=== PATIENT | male | born 1950 | race Caucasian/White ===

== ENCOUNTER 2018-08-20 16:47 | Emergency (ER) | payer MEDICARE, SELFPAY ==
[2018-08-20] VITALS (23 sets, daily range): BP systolic 130–176; BP diastolic 79–104; PULSE 61–93; RESP 11–20; TEMP 36.5–37.1; O2SAT 92–97
--- NOTE | 2018-08-20 17:04 | DI.CT_ITS ---
SYMPTOM/DIAGNOSIS: GI BLEEDING ABDOMINAL AND PELVIC CT: 08/20/18 CT examination of the abdomen and pelvis was performed with a bolus infusion of 100 cc Omnipaque 350. Images obtained through the lung bases are unremarkable. Liver, spleen and pancreas appear intact. There is question of renal cortical mass involving the mid to lower pole of the left kidney laterally. This is a questionable finding. Otherwise, kidneys and adrenals are unremarkable. Abdominal aorta is of normal diameter although with a calcified wall. No other major vascular abnormalities seen. Appendix is normal. No evidence of diverticulitis or bowel obstruction. No abdominal or pelvic adenopathy seen. No significant abdominal wall hernia seen. CONCLUSION: No evidence of acute process. Question left renal cortical mass, renal MRI requested for further evaluation.
[2018-08-20 17:40] LABS: Abs Immature Grans 0.01 k/cumm (0.0-0.09); Absolute Basophil Count 0.02 k/cumm (0.0-0.2); Absolute Eosinophil Count 0.07 k/cumm (0.0-0.7); Absolute Lymphocyte Count 1.38 k/cumm (1.2-3.4); Absolute Monocyte Count 0.41 k/cumm (0.11-0.7); Absolute Neutrophil Count 3.77 k/cumm (1.2-6.7); Basophils % 0.4; Eosinophils % 1.2; HCT 44.8 % (40.0-50.0); HGB 15.8 g/dL (13.5-17.5); Immature Grans % 0.2; Lymphocytes % 24.4; Mean Corp. HGB Concentration 35.3 g/dL (32.0-36.0); Mean Corpuscular Hemoglobin 32.6 pg (27.0-33.0); Mean Corpuscular Volume 92.4 fL (80-95); Monocytes % 7.2; Neutrophils % 66.6; Platelet Count 187 x1000/uL (130-400); RBC 4.85 m/cumm (4.50-6.00); RBC Distribution Width 12.7 % (11.8-14.1); White Blood Cell Count 5.66 k/cumm (4.4-10.8)
[2018-08-20 17:53] LABS: ALT 34 U/L (12-78); AST 8 U/L (15-37); Albumin 3.6 g/dL (3.4-5.0); Alkaline Phosphatase 86 U/L (46-116); Anion Gap 10.9 mmol/L (3-11); BUN 15 mg/dL (7-18); Bilirubin, Total 0.4 mg/dL (0.2-1.0); CO2 26.1 mmol/L (21.0-32.0); CREATININE 1.05 mg/dL (0.70-1.30); Calcium 8.7 mg/dL (8.5-10.1); Chloride 102 mmol/L (98-107); Glucose 132 mg/dL (70-100); PTT Activated 23.4 sec (21.0-31.4); Potassium 3.7 mmol/L (3.5-5.1); Prothrombin Time 9.8 sec (9.3-11.0); Sodium 139 mmol/L (136-145); Total Protein 7.2 g/dL (6.4-8.2)
[2018-08-20] MEDS: Omnipaque 350 MG/ML 100 ML BTL IJ (18:08)
--- NOTE | 2018-08-20 18:51 | DI.VRAD_ITS ---
EXAM: CT Abdomen and Pelvis With Contrast EXAM DATE/TIME: 08/20/2018 5:05 PM CLINICAL HISTORY: 68 years old, male; Signs and symptoms; Other: Gi bleed; Patient HX: Rectal bleeding since this morning. TECHNIQUE: Imaging protocol: Axial computed tomography images of the abdomen and pelvis with intravenous contrast. Coronal and sagittal reformatted images were created and reviewed. Radiation optimization: All CT scans at this facility use at least one of these dose optimization techniques: automated exposure control; mA and/or kV adjustment per patient size (includes targeted exams where dose is matched to clinical indication); or iterative reconstruction. Contrast material: omnipaque 350 Contrast volume: 100 ml Contrast route: iv COMPARISON: No relevant prior studies available. FINDINGS: Lower thorax: There is mild atelectasis and/or scarring at the lung bases. There is moderately severe diffuse atherosclerosis of the abdominal aorta without evidence of aneurysm. There are few diverticula in the distal descending colon and sigmoid colon. There is no identifiable surrounding inflammation however. ABDOMEN: Liver: Normal. No mass. Gallbladder and bile ducts: Normal. No calcified stones. No ductal dilation. Pancreas: Normal. No ductal dilation. Spleen: Normal. No splenomegaly. Adrenals: Normal. No mass. Kidneys and ureters: Normal. No hydronephrosis. Stomach and bowel: See Lower Thorax Finding. Appendix: No evidence of appendicitis. PELVIS: Bladder: Unremarkable as visualized. Reproductive: Unremarkable as visualized. ABDOMEN and PELVIS: Intraperitoneal space: Normal. No free air. No significant fluid collection. Bones/joints: There is mild severe discogenic disease at L4-5 with moderate spondylosis elsewhere including lower thoracic spine Soft tissues: Unremarkable. Vasculature: See Lower Thorax Finding. Lymph nodes: Normal. No enlarged lymph nodes. IMPRESSION: #1 mild diverticulosis of the left colon but no definite evidence of acute diverticulitis #2 moderate diffuse atherosclerosis Dictated and Authenticated by: Wm Garcia MD. Ordering:TERRELL Oleary MD
--- NOTE | 2018-08-20 19:06 | W.ED.GENAD ---
Discharge Plan Disposition Patient Disposition: HOME Condition: Good Discharge Details Chief Complaint: GI Bleed Clinical Impression: Rectal bleed Primary Care Provider: Leon Deluca ED Provider: Anirudh Weaver Home Meds and New Rx's Prescriptions: New hydrocortisone acetate [Anusol-HC] 25 mg suppository 25 mg AL BID 7 Days Qty: 24 RF: 0 Discharge Instructions Instructions: Rectal Bleeding (ED) Additional Instructions: Please use the suppository if you develop any pain with bowel movements. Please maintain soft stools by taking your home Colace regularly. You will be contacted for your colonoscopy and surgery appointment. If you notice any worsening of your symptoms, or any new symptoms such as severe rectal bleeding, vomiting, diarrhea, fever, chills, shortness of breath, chest pain, numbness, weakness, or fainting , please return immediately to the emergency department for reevaluation. Please follow up with your primary care provider as soon as possible for reassessment and reevaluation. As always, it was a pleasure participating in your medical care today. Referrals: Leon Deluca [Primary Care Provider] - Discharge Data Discharge Date/Time-TO BE ENTERED AT DEPARTURE: 08/20/18 19:22 Medical Decision Making This is a 68-year-old male presents today for evaluation of rectal bleeding. Patient had rectal bleeding that started this morning, and was present for an additional bowel movement later. He has no associated pain or tenderness on exam. Remainder of his exam demonstrates no signs of fissure or significant hemorrhoid, however he did have a small amount of pain when the bleeding first started with his bowel movement which may have been a ruptured hemorrhoid at that time. Laboratory workup was performed and demonstrates normal hemoglobin, normal renal function, normal platelets, no other significant abnormalities. CT scan shows no acute process but does demonstrate evidence of diverticulosis with no active bleeding. With no continued bloody bowel movements during his stay here, normal vital signs, normal laboratory workup I do feel that he can be discharged with close follow-up with surgery on an outpatient basis and colonoscopy. Discussed the importance of maintaining soft stools, Anusol suppositories for potential hemorrhoids, and prompt return for any worsening of his symptoms. I have extensively reviewed the treatment plan and discharge instructions with the patient and their family. I have addressed all patient concerns at this time. The patient and family was made aware of what symptoms to monitor for that would warrant a return to the emergency department. Discussed the plan with the patient and family, they demonstrate verbal understanding and agreement with our assessment and plan at this time. TECHNIQUE: Imaging protocol: Axial computed tomography images of the abdomen and pelvis with intravenous contrast. Coronal and sagittal reformatted images were created and reviewed. Radiation optimization: All CT scans at this facility use at least one of these dose optimization techniques: automated exposure control; mA and/or kV adjustment per patient size (includes targeted exams where dose is matched to clinical indication); or iterative reconstruction. Contrast material: omnipaque 350 Contrast volume: 100 ml Contrast route: iv COMPARISON: No relevant prior studies available. FINDINGS: Lower thorax: There is mild atelectasis and/or scarring at the lung bases. There is moderately severe diffuse atherosclerosis of the abdominal aorta without evidence of aneurysm. There are few diverticula in the distal descending colon and sigmoid colon. There is no identifiable surrounding inflammation however. ABDOMEN: Liver: Normal. No mass. Gallbladder and bile ducts: Normal. No calcified stones. No ductal dilation. Pancreas: Normal. No ductal dilation. Spleen: Normal. No splenomegaly. Adrenals: Normal. No mass. Kidneys and ureters: Normal. No hydronephrosis. Stomach and bowel: See Lower Thorax Finding. Appendix: No evidence of appendicitis. PELVIS: Bladder: Unremarkable as visualized. Reproductive: Unremarkable as visualized. ABDOMEN and PELVIS: Intraperitoneal space: Normal. No free air. No significant fluid collection. Bones/joints: There is mild severe discogenic disease at L4-5 with moderate spondylosis elsewhere including lower thoracic spine Soft tissues: Unremarkable. Vasculature: See Lower Thorax Finding. Lymph nodes: Normal. No enlarged lymph nodes. IMPRESSION: #1 mild diverticulosis of the left colon but no definite evidence of acute diverticulitis #2 moderate diffuse atherosclerosis Dictated and Authenticated by: Wm Garcia MD. HPI General Date/Time Provider Initiated Documentation: 08/20/18 16:52. HPI Narrative: This is a 68-year-old male with no significant past medical history who presents today for evaluation of bright red blood per rectum. Patient states that this morning he had a bowel movement which caused some pain at that time, he noticed some blood around his stool, and since then he has had 2 more episodes of blood. The first time it was just blood which she would describe is bright red with some clots, small amount in the amount of 1-2 tablespoons. The second episode was with a bowel movement, which had no associated pain. There is also bright red blood noted at this time was roughly 1-2 tablespoons of blood. He denies any vomiting, diarrhea, chest pain, shortness of breath, blood thinner use, numbness tingling or weakness. He denies any previous abdominal surgeries. He has no other complaints or other modifying factors. He has not had any symptoms like this before in the past. He denies any recent colonoscopy. Related Data Home Medications Medication Instructions Recorded Confirmed hydrocortisone acetate [Anusol-HC] 25 mg AL BID 7 Days #24 each 08/20/18 Previous Rx's Medication Instructions Recorded hydrocortisone acetate [Anusol-HC] 25 mg AL BID 7 Days #24 each 08/20/18 Allergies Allergy/AdvReac Type Severity Reaction Status Date / Time No Known Allergies Allergy Unverified 08/20/18 17:12 General Stated Complaint: GI Bleed DARA: 2 Review of Systems Review of Systems All systems reviewed & are unremarkable except as noted in HPI and below PFSH Surgical History Colonoscopy - IV Sedation (12/26/15) Vasectomy Social History Smoking/Tobacco Use Status: Former Tobacco Use Alcohol Intake: never Drug use: Never Substance use type: does not use Do you feel safe at home: Yes Do you feel safe in your relationship?: Yes Exam Narrative Exam Narrative: 1.Const: Well-nourished, Well-developed, appearing stated age 2.Eyes: PERRL, no conjunctival injection, and symmetrical lids. 3.ENT: Atraumatic external nose and ears. Moist MM. Neck: Symmetric, trachea midline, No thyromegaly. 4.CVS: +S1/S2, No murmurs or gallops. Peripheral pulses 2+ and equal in all extremities. Brisk capillary refill in all extremities. 5.RESP: Unlabored respiratory effort. Clear to auscultation bilaterally. No wheezes rales or rhonchi 6.GI: Soft, Nontender/Nondistended, No hepatosplenomegaly. No guarding or rebound. Rectal exam demonstrates no evidence of enlarged clot or hemorrhoid. Internal rectal exam demonstrates no significant tenderness, no evidence of anal fissure. No signs of active bleeding. There is some dried blood noted. No other significant abnormality. 7.MSK: Normocephalic/Atraumatic, Extremities w/o deformity or ttp No cyanosis or clubbing, Normal movement of all extremities 8.Skin: Warm, Dry. No rashes or lesions. 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 Sensation grossly intact, no focal neurologic deficits. 10.Psych: (AAO) x3. Appropriate mood and affect Course Vital Signs Temperature 36.5 C 08/20/18 16:56 Pulse 70 08/20/18 16:56 Respiratory Rate 13 08/20/18 16:56 Blood Pressure 166/98 H 08/20/18 16:56 Pulse Oximetry 95 08/20/18 16:56 Temperature 36.5 C 08/20/18 16:56 Temperature Source Temporal Artery Scan 08/20/18 16:56 Pulse 70 08/20/18 16:56 Respiratory Rate 13 08/20/18 16:56 Respiratory Effort Non-Labored 08/20/18 16:56 Blood Pressure 166/98 H 08/20/18 16:56 Pulse Oximetry 95 08/20/18 16:56 Oxygen Delivery Method Room Air 08/20/18 16:56 Oxygen Flow Rate 0 08/20/18 16:56 Pain Level 0 08/20/18 16:56 Lab/Test Results Lab/Test Results: Laboratory Tests Range/Units 08/20/18 08/20/18 08/20/18 17:25 17:25 17:25 WBC (4.4-10.8) k/cumm 5.66 RBC (4.50-6.00) m/cumm 4.85 Hgb (13.5-17.5) g/dL 15.8 Hct (40.0-50.0) % 44.8 MCV (80-95) fL 92.4 MCH (27.0-33.0) pg 32.6 MCHC (32.0-36.0) g/dL 35.3 RDW (11.8-14.1) % 12.7 Plt Count (130-400) x1000/uL 187 MPV (8.0-11.0) fL 11.0 Immature Gran % 0.2 Neutrophils % 66.6 Lymphocytes % 24.4 Monocytes % 7.2 Eosinophils % 1.2 Basophils % 0.4 Absolute Neutrophils (1.2-6.7) k/cumm 3.77 Absolute Lymphocytes (1.2-3.4) k/cumm 1.38 Absolute Monocytes (0.11-0.7) k/cumm 0.41 Absolute Eosinophils (0.0-0.7) k/cumm 0.07 Absolute Basophils (0.0-0.2) k/cumm 0.02 PT (9.3-11.0) sec 9.8 INR (0.9-1.1) 1.0 APTT (21.0-31.4) sec 23.4 Sodium (136-145) mmol/L 139 Potassium (3.5-5.1) mmol/L 3.7 Chloride (98-107) mmol/L 102 Carbon Dioxide (21.0-32.0) mmol/L 26.1 Anion Gap (3-11) mmol/L 10.9 BUN (7-18) mg/dL 15 Creatinine (0.70-1.30) mg/dL 1.05 Estimated GFR/1.73 m2 (mL/min/1.73m2) >= 60.00 Glucose (70-100) mg/dL 132 H Calcium (8.5-10.1) mg/dL 8.7 Total Bilirubin (0.2-1.0) mg/dL 0.4 AST (15-37) U/L 8 L ALT (12-78) U/L 34 Alkaline Phosphatase (46-116) U/L 86 Total Protein (6.4-8.2) g/dL 7.2 Albumin (3.4-5.0) g/dL 3.6
--- NOTE | 2018-08-21 10:06 | NUR.NOTE ---
Nursing Note: Faxed the referral to General Surgery for follow up. Maryse Linder.
--- NOTE | 2018-08-23 08:05 | W.ED.FU ---
Date of service: 08/23/18 Time of Service: 08:06 Follow Up Plan: I was contacted by Dr. Fournier the radiologist, and on reread of the patient's initial CT scan there is concern for a questionable left renal cortical mass, recommended renal MRI for future evaluation per radiology. I did contact the patient discussed these findings with him over the phone at 8:06 AM. He has follow-up tomorrow with the surgeon. I recommended that he discuss this with them at that time. In regards to the patient's bleeding, the bleeding has resolved, he is passing gas, he has no abdominal pain or distention. He is feeling much better. We discussed red flags for which to immediately return as well as the importance of follow-up tomorrow with his surgeon. All questions were answered. ABDOMINAL AND PELVIC CT: 08/20/18 CT examination of the abdomen and pelvis was performed with a bolus infusion of 100 cc Omnipaque 350. Images obtained through the lung bases are unremarkable. Liver, spleen and pancreas appear intact. There is question of renal cortical mass involving the mid to lower pole of the left kidney laterally. This is a questionable finding. Otherwise, kidneys and adrenals are unremarkable. Abdominal aorta is of normal diameter although with a calcified wall. No other major vascular abnormalities seen. Appendix is normal. No evidence of diverticulitis or bowel obstruction. No abdominal or pelvic adenopathy seen. No significant abdominal wall hernia seen. CONCLUSION: No evidence of acute process. Question left renal cortical mass, renal MRI requested for further evaluation. [id number]: Total DLP = 0.00 mGy-cm
== END 2018-08-20 19:22 | disposition home or self-care (01) ==
PROVIDERS: Emergency Provider Student in an Organized Health Care Education/Training Program; PCP Family Medicine
DX: K62.5 Hemorrhage of anus and rectum (principal)
CPT/HCPCS: 36415; 80053; 86900; 86901; 99285; 74177; 85025; 85610; 85730; 99284; J3490

== ENCOUNTER → 2018-08-24 09:41 | Outpatient (BNVA) | payer MEDICARE, SELFPAY | PROVIDERS: PCP Family Medicine; Referring Provider Family Medicine; Visit Provider Physical Therapy Assistant | DX: Z86.010 Personal history of colon polyps (principal); K62.5 Hemorrhage of anus and rectum; K21.9 Gastro-esophageal reflux disease without esophagitis | CPT/HCPCS: 99212; 99213 ==

== ENCOUNTER 2018-09-01 10:53 | Day surgery (SDC) | payer MEDICARE, SELFPAY ==
[2018-09-01 11:18] VITALS: BP 133/99; PULSE 70; RESP 18; TEMP 35.8; O2SAT 97
[2018-09-01] MEDS: Lactated Ringers 1,000 ML 80 ML IV (11:25)
--- NOTE | 2018-09-01 12:29 | STOM_PTH ---
PATIENT: Lyndon Álvarez LOC: [facility] U#:[id number] AGE/SX: 68/M ROOM: RE09/01/[address]: Anisa Sauceda : 1950 BED: DIS: 09/01/2018 SPEC #: [id number] RECD: 09/01/18 16:33 STATUS: [facility] #: [id number] YURIDIA: 09/01/18 12:[address]: Anisa Sauceda DEPT: Surgical Specimen RECD BY: Gaurav Casarez ENTERED: 09/01/18 16:40 SP TYPE: STOMACH OTHR DR: Leann Aviles Tissues: 1 - STOMACH BIOPSY 2 - STOMACH BIOPSY 3 - STOMACH BIOPSY 4 - STOMACH BIOPSY 5 - STOMACH BIOPSY 6 - STOMACH BIOPSY 7 - STOMACH BIOPSY Procedures: GROSS AND MICRO LEVEL 4 Comments: [id number]
--- NOTE | 2018-09-01 13:00 | W.PM.ENDDOP ---
Date of service: 09/01/18 Time of Service: 13:00 Endoscopy Report DATE OF PROCEDURE: 09/01/18 PRE-OP DIAGNOSIS: GERD/Hx of CRC polypc POST-OP DIAGNOSIS: other (sm hiatal hernia/esophagitis- poss Barett's, pd path. x2 polyps- 80 & 20cm. diverticular Dx mild) PROCEDURE: egd w/ Bx CE w/ polypectomy x2 ANESTHESIA: GETA ESTIMATED BLOOD LOSS: 5 PATHOLOGY: other COMPLICATIONS: None DISPOSITION: same day PREP: Miralax COLONOSCOPY RETRACTION TIME: 12 mins PROCEDURE DESCRIPTION: After informed consent was obtained the patient was take to the procedure room and placed in a supine position. Monitors were applied and a time out was done. The patients name, date of , procedure type, allergies to medications and metal in their body was reviewed. A bite block was placed and the patient was sedated. Once sedated and comfortable the gastroscope was advanced through the oropharynx which was grossly normal into the esophagus. The proximal and mid-esophagus were nl. In the distal esophagus there was mod-severe esohphagitis. Poss Barett's- 1 tongue. pd path. Bx taken Sm hiatal hernia. noted. The scope was advanced into the stomach and through the pylorus into the 3rd portion of the duodenum. The duodenum was noted to be nl. Biopsies were done nl. The scope was retracted back into the stomach and biopsies were done to rule out H. pylori. There were no ulcers. The scope was retroflexed. The cardia and fundus were noted to be normal. There sm a hiatal hernia noted. The scope was retracted back into the esophagus and biopsies were done of the GE junction to rule out Morocho's. The Z line was regular. The GE junction was at 40 cm. After informed consent was obtained the patient was taken to the procedure room and placed in a left decubitous position. Monitors were applied and a time out was done. The patients name, date of , procedure, allergies to medications and metal in their body was reviewed. The patient was then sedated. Once sedated and comfortable a rectal exam was done. External exam was normal. Internal exam revealed a normal sphincter tone and no palpable masses. The prostate - could not palpate. The scope was then introduced and retrofelexed. No internal hemorrhoids were identified. The scope was then advanced to the cecum without difficulty. The TI and appendiceal orifice were identified. The prep was good. The scope was then slowly retracted over 12 minutes back into the rectum. Polyps were removed at 80cm/ascending & 20cm/descending. w/ cold biting forcept. Al specimens are retrieved adn no bleeding is noted. . The scope was removed and the patient was woken up and taken back to Same day surgery in stable condition. The patient tolerated the procedure well and there were no immediate complications. Follow up: The patient should follow up in 3-5yrs path pd or unless they develop changes in bowel habits or other new gastrointestinal complaints.
--- NOTE | 2018-09-01 13:06 | W.PM.DSUDISC ---
Discharge Plan Disposition Patient Disposition: HOME Condition: Good Discharge Details Attending Provider: Anisa Sauceda Primary Care Provider: Leann Aviles Home Meds and New Rx's Prescriptions: New pantoprazole [Protonix] 40 mg tablet,delayed release (DR/EC) 40 mg PO DAILY Qty: 30 RF: 11 Discontinued duralax PO PRNRF: 0 Discharge Instructions Instructions: High Fiber Diet (GEN), Gastroesophageal Reflux Disease (GEN) Additional Instructions: Findings: esophagitis sm hiatal hernia diverticular Dx - mild polyps x2 Follow up: 2wks no ASA/ NSAIDs for x2 wks start protonix Continue with lifestyle modifications: no alcohol, tobacco products, Aspirin or NSAID's (ibuprofen, Motrin, Naprosyn, aleve, etc), soda pop/any carbonated beverages, caffeine (including tea & chocolate), and acidic foods, (tomatoes, citrus, onions, peppermints) spicy or fried/fatty foods. Do not lie down for 30 minutes after eating, and do not eat 2 hours prior to bedtime. Avoid wearing tight fitting clothing/ belts Please call if you develop: fevers >101.5 Nausea or Vomiting Abdominal pain that is not transient DAY SURGERY UNIT POST COLONOSCOPY INSTRUCTIONS 1. Because there will be medication in your system for the next 24 hours, you may feel a little sleepy. Your coordination will be affected. Therefore: a. Do not drive or operate dangerous equipment for 24 hours. b. Do not drink alcohol beverages for 24 hours (not even beer). c. Plan to go home and rest for the day. 2. Generally there are no restrictions on your activity after a day or so has gone by, but you may feel a bit fatigued for a few days. 3 After you arrive home you may have a light meal and return to a normal diet as you can tolerate it without feeling sick to your stomach. 4. After surgery, you may feel pain or discomfort. This should be only transient, but if it persists please contact your doctor. 5. If there are any questions regarding the findings of your procedure, please feel free to contact your doctor. 6. If you are unable to contact your doctor with a problem, contact the hospital at [phone]. 7. Continue all your regular medications unless directed otherwise. I understand the above instructions and have no questions. Signature of Patient or Responsible Adult Escort Date/Time Name of Responsible Adult Escort Signature of Nurse Date/Time Activity:: no heavy lifting or strenuous activity x 24 hrs Diet:: lt sm meals today DS: Diagnosis Discharge Diagnosis (1) GERD (gastroesophageal reflux disease): Status: Acute (2) Tubular adenoma: Status: Acute (3) Esophagitis determined by endoscopy: Status: Acute (4) Hiatal hernia: Status: Chronic (5) Diverticula of colon: Status: Acute
[2018-09-01 13:28] VITALS: BP 143/89; PULSE 60; RESP 18; TEMP 35.3; O2SAT 97
== END 2018-09-01 14:17 | disposition home or self-care (01) ==
PROVIDERS: PCP Nurse Practitioner Family; Visit Provider Surgery
PROC: (CPT 45380; principal; 2018-09-01 13:00)
DX: K62.5 Hemorrhage of anus and rectum (principal); D12.2 Benign neoplasm of ascending colon; D12.6 Benign neoplasm of colon, unspecified; Z86.010 Personal history of colon polyps; K21.0 Gastro-esophageal reflux disease with esophagitis; K31.89 Other diseases of stomach and duodenum; K44.9 Diaphragmatic hernia without obstruction or gangrene
CPT/HCPCS: 45380; 43239; 88305

== ENCOUNTER → 2018-09-11 10:16 | Outpatient (BNVA) | payer MEDICARE, SELFPAY | PROVIDERS: PCP Nurse Practitioner Family; Referring Provider Nurse Practitioner Family; Visit Provider Surgery | DX: K57.30 Diverticulosis of large intestine without perforation or abscess without bleeding (principal); K44.9 Diaphragmatic hernia without obstruction or gangrene; K21.0 Gastro-esophageal reflux disease with esophagitis; D36.9 Benign neoplasm, unspecified site | CPT/HCPCS: 99212 ==

== ENCOUNTER 2018-09-14 01:35 | Outpatient (CLI) | payer MEDICARE, SELFPAY ==
[2018-09-14] MEDS: Gadoterate meglumine 20 ML VIAL IVP (09:30)
[2018-09-14] MEDS: Normal Saline Flush 10 ML SYR IVP (09:31)
--- NOTE | 2018-09-14 09:41 | DI.MRI_ITS ---
SYMPTOMS/DIAGNOSIS: RENAL MASS, N28.89, F/U ABNORMAL FINDINGS ON XR OF OTHER ABDOMINAL REGIONS, R93.5 ABDOMINAL MRI: MRI examination of the abdomen was performed utilizing renal mass protocol. An intermediate attenuation mass was identified on contrast enhanced CT on recent examination of 08/20/18 with attenuation measurements approximately 46 Hounsfield units. On today's MR examination, visualized portions of the liver and spleen are unremarkable. No pancreatic abnormality seen. No aortic aneurysm. Adrenals are unremarkable. No abdominal adenopathy seen. The left renal mass measures about 16 mm in diameter and is well circumscribed and homogeneous in signal on all pulse sequences. The mass does not show enhancement on multiphasic post contrast imaging. The mass is of intermediate signal intensity on T1 weighted images and low signal intensity on T2 and T2 fat-sat imaging. Post phase imaging shows no associated Yue ink artifact to suggest macroscopic fat. The findings as described may represent a proteinaceous or hemorrhagic cyst. Neoplastic disease not absolutely excluded but less likely. I would suggest that an ultrasound also be obtained at this time to provide any more relevant information. The patient has not had a previous ultrasound examination. If the mass is not clearly identified as a cyst at ultrasound, follow-up MRI would be recommended in six months to assess the stability of the lesion.
[2018-09-15] MEDS: Gadoterate meglumine 20 ML VIAL IVP (11:58)
[2018-09-15] MEDS: Normal Saline Flush 10 ML SYR IVP (11:59)
== END 2018-09-14 01:55 ==
PROVIDERS: PCP Nurse Practitioner Family; Visit Provider Nurse Practitioner Family
DX: N28.89 Other specified disorders of kidney and ureter (principal); R93.5 Abnormal findings on diagnostic imaging of other abdominal regions, including retroperitoneum
CPT/HCPCS: 74183

== ENCOUNTER 2018-09-28 01:19 | Outpatient (CLI) | payer MEDICARE, SELFPAY ==
--- NOTE | 2018-09-28 12:00 | DI.US_ITS ---
SYMPTOMS/DIAGNOSIS: RENAL MASS, N28.89, F/U MRI AND CT, ? CYST RENAL ULTRASOUND: The right kidney measures 10.6 x 6.4 x 6.4 cm. The left kidney measures 10.7 x 4.8 x 5.4 cm and contains a small cortical cystic region. Although this finding may in fact represent a simple cyst, further assessment with CT is recommended. The prevoid bladder contains 176 cc, the postvoid bladder 19 cc. There is mild enlargement of the prostate at 32 cc. Both ureteral jets were visualized. SUMMARY: A left renal 1.5 x 1.3 x 1.5 cm cortical abnormality is demonstrated, likely representing a cyst; however, the findings are not entirely typical and further evaluation with renal CT is suggested.
== END 2018-09-28 01:39 ==
PROVIDERS: PCP Nurse Practitioner Family; Visit Provider Nurse Practitioner Family
DX: N28.89 Other specified disorders of kidney and ureter (principal); N28.1 Cyst of kidney, acquired; N40.0 Benign prostatic hyperplasia without lower urinary tract symptoms
CPT/HCPCS: 76770

== ENCOUNTER 2018-10-04 09:20 | Outpatient (REF) | payer MEDICARE, SELFPAY ==
[2018-10-04 12:11] LABS: Anion Gap 10.3 mmol/L (3-11); BUN 14 mg/dL (7-18); CO2 26.7 mmol/L (21.0-32.0); CREATININE 0.93 mg/dL (0.70-1.30); Calcium 8.4 mg/dL (8.5-10.1); Chloride 105 mmol/L (98-107); Glucose 122 mg/dL (70-100); Sodium 142 mmol/L (136-145)
== END 2018-10-04 09:40 ==
LOC: NCHCN 09:20
PROVIDERS: PCP Nurse Practitioner Family; Visit Provider Nurse Practitioner Family
DX: R73.09 Other abnormal glucose (principal)
CPT/HCPCS: 80048

== ENCOUNTER 2019-11-07 02:15 | Outpatient (CLI) | payer MEDICARE, SELFPAY ==
--- NOTE | 2019-11-07 | DI.US_ITS ---
EXAM: US RENAL CLINICAL HISTORY: RENAL MASS, N28.89, HX OF INCIDENTAL FINDING MOST LIKELY CYST. TECHNIQUE: Mai scale, color and spectral Doppler were used. COMPARISON: US US renal from 09/28/2018 FINDINGS: Renal size in cm: Right: 11.3 left: 12.6 Echogenicity: Normal. Hydronephrosis: No. Cyst or mass: There is again seen a hypoechoic avascular left renal cortical lesion. It measures 1.7 x 1.3 x 1.5 cm. Using similar measuring technique on the prior examination, there has been no signi ficant change in size. Nephrolithiasis: No. Other findings: None. Bladder:Normal. Ureteral jets: Right: Visualized and unremarkable. Left: Visualized and unremarkable. Prevoid vol:357 cc Postvoid vol:34 cc Prostate: 31 cc IMPRESSION: Stable left renal cortical lesion since 09/28/2018. DATA REPOSITORY:
== END 2019-11-07 02:35 ==
PROVIDERS: PCP Nurse Practitioner; Visit Provider Nurse Practitioner
DX: N28.89 Other specified disorders of kidney and ureter (principal)
CPT/HCPCS: 76770

== ENCOUNTER 2020-01-06 18:38 | Emergency (ER) | payer MEDICARE, SELFPAY ==
[2020-01-06] VITALS (14 sets, daily range): BP systolic 114–148; BP diastolic 74–90; PULSE 67–81; RESP 16; TEMP 36.6; O2SAT 93–97
--- NOTE | 2020-01-06 18:54 | ED.GENADUL_ITS ---
Discharge Plan Disposition Patient Disposition: HOME Condition: Stable Discharge Details Clinical Impression: Rectal bleeding Primary Care Provider: Leann Aviles ED Provider: Talon Angulo Home Meds and New Rx's Prescriptions: Continued pantoprazole [Protonix] 40 mg tablet,delayed release (DR/EC) 40 mg PO DAILY Qty: 30 RF: 11 Discharge Instructions Instructions: Rectal Bleeding (ED) Additional Instructions: Please contact your primary care physician to arrange follow-up. Please contact general surgery tomorrow morning to arrange timely follow-up. Return to the ER for any worsening or new concerning symptoms. Referrals: Leann Aviles [Primary Care Provider] - Anisa Sauceda DO [OSTEOPATHIC DOCTOR] - Discharge Data Discharge Date/Time-TO BE ENTERED AT DEPARTURE: 01/06/20 20:55 Medical Decision Making 1901 -- 69-year-old male with history of GERD, diverticula of the colon, prior esophagitis and currently on pantoprazole daily, prior tubular adenoma removed from the colon, here with rectal bleeding over the past 2 days. Patient is not on any anticoagulants. No abdominal pain. Abdominal exam is benign. Patient is hemodynamically stable. Plan to check CBC. Will have patient change and perform rectal exam. --Rectal exam performed and does have some dried blood around his rectum. No hemorrhage. No tenderness. Labs reviewed and hemoglobin is normal. I called and spoke with Dr. Sauceda, on-call general surgeon who knows the patient from prior GI bleed, we discussed ED presentation and course. She recommends discharge with close outpatient follow-up. Patient reassessed after being observed in the emergency department for 2 hours. He has had no recurrent bleeding and remains hemodynamically stable. Plan will be for discharge with outpatient follow-up tomorrow. Patient advised to call surgical office tomorrow. Disposition decision was made weighing the risks and benefits of hospitalization versus outpatient treatment, the risk for further decompensation, and the patient's wishes. The patient was stable and requested discharge. Prior to discharge, my usual and customary return precautions were reviewed with the patient - this included follow-up instructions and reason to return to the emergency department if condition worsens, does not improve as expected, or other new concerns arise. HPI General Mode of arrival: ambulatory . Date/Time Provider Initiated Documentation: 01/06/20 18:38 . Limitations to Documentation: no limitations . Information obtained by: patient . HPI Narrative: 69-year-old male with history of GERD, diverticula of the colon, prior esophagitis and currently on pantoprazole daily, prior tubular adenoma removed from the colon, here with rectal bleeding. Patient notes bleeding started 2 days ago. Patient notes normal brown formed stool with separate dark blood. He notes he had an episode on Tuesday, no episode yesterday during the day, he did have an episode last night and then again this morning. Seems to be worse this morning with his bowel movement. No hemorrhage. No associated pain. No fever. Related Data Home Medications Medication Instructions Recorded Confirmed pantoprazole [Protonix] 40 mg PO DAILY #30 tab 09/01/18 01/07/20 Previous Rx's Medication Instructions Recorded pantoprazole [Protonix] 40 mg PO DAILY #30 tab 09/01/18 Allergies Allergy/AdvReac Type Severity Reaction Status Date / Time No Known Allergies Allergy Verified 01/07/20 14:51 General Stated Complaint: GI Bleed DARA: 3 Review of Systems All systems reviewed & are unremarkable except as noted in HPI and below Constitutional Constitutional: Denies fever(s) Gastrointestinal Gastrointestinal: Denies abdominal pain [facility] Medical History (Updated 01/06/20 @ 20:52 by Talon Angulo MD) Abnormal colonoscopy 09/01/18 [facility], tubular adenoma and sessile serrated adenoma, repeat 3 years. mg 12/26/15 [place] with Panda Forman @ [facility], tubular adenoma, repeat in five years. mg Diverticula of colon Esophagitis determined by endoscopy GERD (gastroesophageal reflux disease) Hiatal hernia Rectal hemorrhage Screening for colorectal cancer Sensorineural hearing loss, bilateral (01/24/17) Tubular adenoma (12/26/15) Surgical History History of esophagogastroduodenoscopy (EGD) 09/01/18 [facility], repeat as needed. mg Vasectomy Social History Smoking/Tobacco Use Status: Former Tobacco Use Quit Date: 05/09/98 Alcohol Intake: former Drug use: Never Substance use type: does not use Do you feel safe at home: Yes Do you feel safe in your relationship?: Yes Exam Const General: cooperative and no acute distress HENMT Mouth: moist mucous membranes Eyes Conjunctivae: normal conjunctivae Sclera: normal sclerae Resp Auscultation: clear to auscultation bilaterally, no rales, no rhonchi and no wheezes Cardio Jugular venous pressure: no JVD Rate: regular rate and not tachycardic Rhythm: regular rhythm GI Palpation: soft, not firm, no guarding, no masses, not rigid and nontender Skin General skin exam: no rashes or lesions noted Neuro General: patient alert, patient awake and tone normal Extrem General: no edema Psych Appearance: grossly normal Mental Status: mental status grossly normal Course Vital Signs Vital signs: Vital Signs Temperature 36.6 C 01/06/20 18:45 Pulse 81 01/06/20 18:45 Respiratory Rate 16 01/06/20 18:45 Blood Pressure 148/90 H 01/06/20 18:45 Pulse Oximetry 96 01/06/20 18:45 Temperature 36.6 C 01/06/20 18:45 Temperature Source Skin 01/06/20 18:45 Pulse 81 01/06/20 18:45 Respiratory Rate 16 01/06/20 18:45 Respiratory Effort Non-Labored 01/06/20 18:47 Blood Pressure 148/90 H 01/06/20 18:45 Blood Pressure Position Sitting 01/06/20 18:45 Pulse Oximetry 96 01/06/20 18:45 Oxygen Delivery Method Room Air 01/06/20 18:45 Oxygen Flow Rate 0 01/06/20 18:45 Pain Level 0 01/06/20 18:45
[2020-01-06 19:20] LABS: Abs Immature Grans 0.02 10^3/uL (0.0-0.06); Absolute Basophil Count 0.03 10^3/uL (0.0-0.2); Absolute Lymphocyte Count 1.57 10^3/uL (1.2-3.4); Absolute Monocyte Count 0.45 10^3/uL (0.1-0.8); Absolute Neutrophil Count 4.74 10^3/uL (1.2-6.7); Basophils % 0.4; Eosinophils % 1.4; HCT 48.3 % (40.0-50.0); HGB 16.5 g/dL (13.5-17.5); Immature Grans % 0.3; Lymphocytes % 22.7; MCHC 34.2 % (32.0-36.0); MCV 93.6 fL (80-95); MPV 11.1 fL (8.0-11.0); Monocytes % 6.5; Neutrophils % 68.7; Nucleated RBC 0 %; Platelet Count 214 10^3/uL (130-400); RBC 5.16 10^6/uL (4.36-5.78); RDW-SD 41.4 fL; WBC 6.91 10^3/uL (4.4-10.8)
[2020-01-06 19:36] LABS: ALT 35 U/L (16-63); AST 13 U/L (15-37); Albumin 3.8 g/dL (3.4-5.0); Alkaline Phosphatase 87 U/L (46-116); Anion Gap 9.3 mmol/L (3-11); BUN 13 mg/dL (7-18); Bilirubin, Total 0.6 mg/dL (0.2-1.0); CO2 27.7 mmol/L (21.0-32.0); CREATININE 1.11 mg/dL (0.70-1.30); Calcium 8.8 mg/dL (8.5-10.1); Chloride 101 mmol/L (98-107); Glucose 146 mg/dL (74-106); Potassium 3.9 mmol/L (3.5-5.1); Sodium 138 mmol/L (136-145); Total Protein 7.4 g/dL (6.4-8.2)
[2020-01-06] MEDS: Famotidine 20 MG TAB PO (20:57)
[2020-01-06] MEDS: Pantoprazole 40 MG TABCR PO (20:57)
== END 2020-01-06 20:55 | disposition home or self-care (01) ==
PROVIDERS: Emergency Provider Student in an Organized Health Care Education/Training Program; PCP Nurse Practitioner Family
DX: K62.5 Hemorrhage of anus and rectum (principal)
CPT/HCPCS: 36415; 80053; 86850; 86900; 86901; 99283; 85025

== ENCOUNTER → 2020-01-07 14:48 | Outpatient (BNVA) | payer MEDICARE, SELFPAY | PROVIDERS: PCP Nurse Practitioner Family; Referring Provider Nurse Practitioner Family; Visit Provider Surgery | DX: K62.5 Hemorrhage of anus and rectum (principal) | CPT/HCPCS: 99212 ==

== ENCOUNTER 2020-10-30 22:04 | Outpatient (REF) | payer MEDICARE, SELFPAY ==
[2020-10-30 20:06] LABS: Anion Gap 14.3 mmol/L (3-11); BUN 13 mg/dL (7-18); CO2 22.7 mmol/L (21.0-32.0); Calcium 9.1 mg/dL (8.5-10.1); Chloride 103 mmol/L (98-107); Glucose 200 mg/dL (74-106); Potassium 3.8 mmol/L (3.5-5.1); Sodium 140 mmol/L (136-145)
== END 2020-10-30 22:05 | disposition home or self-care (01) ==
LOC: NCHCN 22:04
PROVIDERS: PCP Nurse Practitioner Family; Visit Provider Nurse Practitioner Family
DX: R73.03 Prediabetes (principal)
CPT/HCPCS: 80048; 83036

== ENCOUNTER → 2021-12-18 10:48 | Outpatient (BNVA) | payer MEDICARE, SELFPAY | PROVIDERS: PCP Nurse Practitioner Family; Referring Provider Nurse Practitioner Family; Visit Provider Physical Therapy Assistant | DX: Z86.010 Personal history of colon polyps (principal); Z12.11 Encounter for screening for malignant neoplasm of colon ==

== ENCOUNTER 2021-12-28 09:54 | Day surgery (SDC) | payer MEDICARE, SELFPAY ==
--- NOTE | 2021-12-28 06:36 | COLE_ITS ---
Colonoscopy Report Date of procedure: 12/28/21 Pre-op diagnosis general: Hx of polyps Post-op diagnosis procedure note: other (polyps and diverticulosis) Procedure: Colonoscopy with polypectomy Surgeon: Litzy Bazzi Anesthesia Type: General:No Airway Estimated blood loss (mL): 3 Pathology: other (ascending polyps x3, sigmoid polyps x3) Complications: None Disposition: same day Indications: The patient is here for Colonoscopy pre-op. His last screening was in 2019 and was remarkable for sessile serrated polyps. He has no family history of colon cancer. He has not had any bowel habit changes. -Discussed colonoscopy bowel prep as well as the procedure. Discussed possible complications of the procedure to include bleeding, pain, perforation, missed small lesion/polyp, sore throat, aspiration and adverse reaction to the medications. Questions were answered to patient?s satisfaction. No guarantees were implied or given.? P// Colonoscopy under sedation Prep: Miralax/Dulcolax Procedure Start Time: 12:22 Procedure End Time: 12:46 Retraction Time: 10 minutes Findings: 6 small polyps Procedure Description: After informed consent was obtained the patient was taken to the procedure room and placed in a left decubitous position. Monitors were applied and a time out was done. The patients name, date of , procedure, allergies to medications and metal in their body was reviewed. The patient was then sedated. Once sedated and comfortable a rectal exam was done. External exam was normal. Internal exam revealed a normal sphincter tone and no palpable masses. The prostate felt smooth a slightly enlarged. The scope was then introduced and retro-flexed. No internal hemorrhoids, polyps or masses were identified on retro-flexion. The scope was then advanced to the cecum without difficulty. The ileocecal vlave and appendiceal orifice were identified. The prep was adequate. The scope was then slowly retracted over 10 minutes back into the rectum. Polyps were removed with cold forceps in the ascending colon x3 and sigmoid colon. There was mild diverticulosis noted. The scope was removed and the patient was woken up and taken back to Same day surgery in stable condition. The patient tolerated the procedure well and there were no immediate compl ications. Follow up: The patient should follow up in 5 years unless they develop changes in bowel habits or other new gastrointestinal complaints.
--- NOTE | 2021-12-28 06:38 | W.PM.DSUDISC ---
Discharge Plan Disposition Patient Disposition: HOME Condition: Good Discharge Details Reason For Visit: colonoscopy Attending Provider: Litzy Bazzi Primary Care Provider: Leann Aviles Home Meds and New Rx's Prescriptions: Continued metformin 500 mg tablet 500 mg PO BID lutein 20 mg capsule 20 mg PO DAILY Rx Instructions: give with meal/snack One-A-Day Men's 50 Plus 400-20-370 mcg tablet 1 tab PO DAILY Discontinued polyethylene glycol 3350 17 gram/dose powder 238 g PO ONCE Qty: 238 0RF Rx Instructions: take per colonoscopy instructions bisacodyl [Dulcolax (bisacodyl)] 5 mg tablet,delayed release (DR/EC) 5 mg PO ONCE Qty: 4 0RF Rx Instructions: take per colonoscopy instructions Discharge Instructions Instructions: Colorectal Polyps (DC), Diverticulosis (DC) Additional Instructions: Findings: a few small polyps diverticulosis Follow up: most likely 5 years Please call if you develop: fevers >101.5 Nausea or Vomiting Abdominal pain that is not transient Rectal bleeding that is more then a tbsp A hard abdomen and inability to pass gas DAY SURGERY UNIT POST ENDOSCOPY INSTRUCTIONS Instructions for everyone who is given Anesthesia: For your safety, please do the following for the next 24 Hours: a. Do not drive or operate dangerous equipment b. Do not drink alcohol beverages or use any recreational drugs for the first 24 hours or while taking pain medications. The medications in your body may have a reaction that can be dangerous. c. Do not make any important decisions or sign any important papers 1. Generally there are no restrictions on your activity after a day or so has gone by, but you may feel a bit fatigued for a few days. 2. After you arrive home you may have a light meal and return to a normal diet as you can tolerate it without feeling sick to your stomach. 3. After surgery, you may feel pain or discomfort. This should be only transient, but if it persists please contact your doctor. 4. If there are any questions regarding the findings of your procedure, please feel free to contact your doctor. 6. If you are unable to contact your doctor with a problem, contact the hospital at [phone]. 7. Continue all your regular medications unless directed otherwise. I understand the above instructions and have no questions. Signature of Patient or Responsible Adult Escort Date/Time Name of Responsible Adult Escort Signature of Nurse Date/Time Activity:: Activity as Tolerated Diet:: high fiber Discharge Orders Discharge Orders: Discharge Order (Routine); Ordered 12/28/21 Ordered By: Litzy Bazzi
[2021-12-28 10:10] VITALS: BP 132/86; PULSE 72; RESP 18; TEMP 36.8; O2SAT 98
[2021-12-28] MEDS: Lactated Ringers 1,000 ML 80 ML IV (10:35)
--- NOTE | 2021-12-28 12:09 | ANES.PREOP_ITS ---
General Info Date of Service Date Performed: 12/28/21 Height: 6 ft 4 in Weight: 115.3 kg Body Mass Index (BMI): 30.9 Surgical Procedure: Operation Date: 12/28/21 13:05 Proposed Procedure Side Surgeon p Colonoscopy Litzy Bazzi MD Meds Allergies and Home Medications Allergies Allergy/AdvReac Type Severity Reaction Status Date / Time No Known Allergies Allergy Verified 12/28/21 10:16 Home Medication Medication Instructions Recorded bisacodyl 5 mg tablet,delayed 5 mg PO ONCE colonscopy bowel prep 12/18/21 release (Dulcolax (bisacodyl)) #4 tabs lutein 20 mg capsule 20 mg PO DAILY 12/18/21 metformin 500 mg tablet 500 mg PO BID 12/18/21 [id number] acid-vit 1 tab PO DAILY 12/18/21 K-lycop 400 mcg-20 mcg-370 mcg tablet (One-A-Day Men's 50 Plus) polyethylene glycol 3350 17 238 g PO ONCE colonoscopy prep 12/18/21 gram/dose oral powder #238 grams Current Visit Medications: Current Medications Generic Name Dose Route Start Last Admin Trade Name Freq PRN Reason Stop Dose Admin Hyoscyamine Sulfate 0.125 mg 12/28/21 06:39 Hyoscyamine 0.125 Mg Sl/Oral/Chew SL DIRECTED PRN Ringer's Solution 1,000 mls @ 80 mls/hr 12/28/21 06:00 12/28/21 10:35 IV 01/24/22 23:59 80 mls/hr INFUSION LISA Administration IV Miscellaneous Supplies 1 each 12/28/21 06:00 Iv Access IV 01/24/22 23:59 DIRECTED LISA Ondansetron HCl 4 mg 12/28/21 06:39 Ondansetron 4 Mg/2 Ml Vial IVP Q4H PRN PRN Nausea / Vomiting Sodium Chloride 0 ml 12/28/21 06:00 Normal Saline Flush 10 Ml Syr IV 01/24/22 23:59 PRN PRN Sodium Chloride 0 ml 12/28/21 06:00 Normal Saline 10 Ml Vial IJ 01/24/22 23:59 DIRECTED PRN Sterile Water 0 ml 12/28/21 06:00 Water,Injection,Sterile 10 Ml Vial IJ 01/24/22 23:59 DIRECTED PRN PFSH Active Problems Active Problems: Problem Status Onset Code Diverticula of colon K57.30 Hiatal hernia K44.9 Esophagitis determined by endoscopy K20.9 GERD (gastroesophageal reflux disease) K21.9 Rectal hemorrhage K62.5 Sensorineural hearing loss, bilateral 01/24/17 H90.3 Tubular adenoma 12/26/15 D36.9 Screening for colorectal cancer Z12.11, Z12.12 Medical History Medical History Abnormal colonoscopy 09/01/18 Dr Sauceda [facility], tubular adenoma and sessile serrated adenoma, repeat 3 years. mg 12/26/15 [place] with Panda Forman @ [facility], tubular adenoma, repeat in five years. mg Surgical History Surgical History History of esophagogastroduodenoscopy (EGD) 09/01/18 Dr Sauceda [facility], repeat as needed. mg Vasectomy Tobacco Smoking/Tobacco Use Status: Former Tobacco Use Alcohol Alcohol Intake: former Substance Use Substance use: Never Substance use type: does not use Vital Signs and Lab Results Vital Signs Most Recent Vital Signs in EMR: Most Recent Vital Signs Temp Pulse Resp BP Pulse Ox 36.8 C 72 18 132/86 98 12/28/21 10:10 12/28/21 10:10 12/28/21 10:10 12/28/21 10:10 12/28/21 10:10 Lab Results Blood Type / Crossmatch: No Data to Display Complete Blood Count: No Data to Display Complete Metabolic Panel: No Data to Display Liver Function Panel: No Data to Display Coagulation Panel: No Data to Display Cardiac Panel: No Data to Display Arterial Blood Gas: No Data to Display Venous Blood Gas: No Data to Display Pancreas Panel: No Data to Display Thyroid Panel: No Data to Display Infectious Disease: No Data to Display Blood Cultures: No Data to Display Toxicology Panel: No Data to Display Anesthesia Assessment and Plan Anesthesia History Personal History: No History of Anesthesia Complications Family History: No Family History of Anesthesia Complications Exercise Tolerance Exercise Tolerance: Metabolic Equivalents>4 Pertinent Negatives Pertinent Negatives: No Symptoms of GERD, No Major Pulmonary Symptoms or Complaints (Former smoker quit 20 years ago ) and No History of CVA/TIA Cardiac & Pulmonary Exam Cardiac Exam: Normal S1/S2 Heart Sounds Pulmonary Exam: Clear Bilateral Breath Sounds Implantable Cardiac Device Does patient have a Pacemaker or an ICD?: No Airway Exam Known Difficult Airway: No Mallampati Class: 2 Mouth Opening: Normal (> 3cm) Thyromental Distance: Greater than 3 cm Neck Range of Motion: Full ROM Neck Circumference: Normal Teeth Condition: Normal Dentition Airway Comments: #22 capped #41 broken ASA Classification ASA Score: ASA 2 Emergency Case?: No NPO Status NPO Status: NPO Clears >2 hours, Solids >8 hours Anesthesia Plan Resuscitation Status: Full Code Anesthesia Technique: General Anesthesia Airway Planned: Natural Airway Monitors Used: Standard Monitors
[2021-12-28 12:11] VITALS: BMI 30.9
--- NOTE | 2021-12-28 12:32 | BOWEL_PTH ---
PATIENT: Lyndon Álvarez LOC: [facility] U#:[id number] AGE/SX: 71/M ROOM: RE12/28/[address]: Litzy Bazzi MD : [id number] BED: DIS: 12/28/2021 SPEC #: [id number] RECD: 12/28/21 18:28 STATUS: MATTY REJackelyn #: [id number] YURIDIA: 12/28/21 12:[address]: Litzy Bazzi DEPT: Surgical Specimen RECD BY: Luisa Banks ENTERED: 12/28/21 18:28 SP TYPE: Bowel OTHR DR: Leann Aviles Tissues: 1 - BIOPSY BOWEL 2 - BIOPSY BOWEL Procedures: GROSS AND MICRO LEVEL 4 Comments: [id number]
--- NOTE | 2021-12-28 12:57 | W.ANESPOSTOP ---
Postoperative Evaluation Date, Time and Location Date Performed: 12/28/21 Time Performed: 12:58 Patient Location: Day Surgery Unit Vital Signs Most Recent Imported Vital Signs: Most Recent Vital Signs Temp Pulse Resp BP Pulse Ox 36.8 C 72 18 132/86 98 12/28/21 10:10 12/28/21 10:10 12/28/21 10:10 12/28/21 10:10 12/28/21 10:10 Most Recent Manually Entered Vital Signs: Adult Blood Pressure: 111/62 Heart Rate: 69 Respirations: 10 Oxygen Saturation (%): 94 Temperature (C): 36.3 C Pain Score (0-10 Scale): 0 Assessment Mental Status: Awake (Alert & Oriented to Patient Baseline) Airway and Respiratory Function: Patent airway with normal (patient baseline) respiratory exam Cardiovascular Function: Hemodynamically Stable Hydration Status: Adequately Hydrated Nausea & Vomiting: No Nausea or Vomiting Pain: Pt. Denies Any Pain Peripheral Nerve Block: Patient did not receive a nerve block
[2021-12-28 13:00] VITALS: BP 111/62; PULSE 69; PULSE 72; RESP 10; RESP 16; TEMP 36.2; TEMPC 36.3; O2SAT 94
[2021-12-28 13:25] VITALS: BP 120/78; PULSE 72; RESP 18; TEMP 36.2; O2SAT 95
== END 2021-12-28 13:35 | disposition home or self-care (01) ==
PROVIDERS: PCP Nurse Practitioner Family; Visit Provider Surgery
PROC: 0DJD8ZZ Inspection of Lower Intestinal Tract, Via Natural or Artificial Opening Endoscopic (ICD-10-PCS; CPT 45378; principal; 2021-12-28 13:00)
DX: Z12.11 Encounter for screening for malignant neoplasm of colon (principal); K63.5 Polyp of colon; Z86.010 Personal history of colon polyps; K21.00 Gastro-esophageal reflux disease with esophagitis, without bleeding; E11.9 Type 2 diabetes mellitus without complications
CPT/HCPCS: 45380; 88305

== ENCOUNTER 2021-12-30 15:02 | Outpatient (REF) | payer MEDICARE, SELFPAY ==
[2021-12-30 16:51] LABS: Anion Gap 8.9 mmol/L (3-11); BUN 17 mg/dL (7-18); CO2 30.1 mmol/L (21.0-32.0); CREATININE 0.9 mg/dL (0.70-1.30); Calcium 9.1 mg/dL (8.5-10.1); Calculated LDL 82 mg/dL (<100); Chloride 105 mmol/L (98-107); Cholesterol 148 mg/dL (<200); Glucose 127 mg/dL (74-106); HDL Cholesterol 37 mg/dL (40-60); Potassium 4.2 mmol/L (3.5-5.1); Sodium 144 mmol/L (136-145); Triglyceride 149 mg/dL (<150)
== END 2021-12-30 15:03 | disposition home or self-care (01) ==
LOC: NCHCN 15:02
PROVIDERS: PCP Nurse Practitioner Family; Visit Provider Nurse Practitioner Family
DX: E11.9 Type 2 diabetes mellitus without complications (principal); Z68.38 Body mass index [BMI] 38.0-38.9, adult; E66.8 Other obesity; E78.5 Hyperlipidemia, unspecified
CPT/HCPCS: 80048; 80061

== ENCOUNTER 2022-10-01 18:28 | Outpatient (CLI) | payer MEDICARE, SELFPAY ==
--- NOTE | 2022-10-01 | DI.RAD_ITS ---
Exam(s) XR KNEE LT 3V AP,LAT,DAVID EXAM: XR KNEE LT 3V AP,LAT,DAVID CLINICAL HISTORY: Eval pathology. TECHNIQUE: 2D digital imaging was performed. COMPARISON: No exams were available for comparison FINDINGS: 3 views No evidence of fractureh. Minimal amount of increased joint fluid. No obvious degenerative changes. Bone density age-appropriate. No osseous lesions. IMPRESSION: No significant osseous findings. Minimal amount of increased joint fluid noted. DATA REPOSITORY: RADIATION DOSE DELIVERED:
--- NOTE | 2022-10-01 19:11 | DI.VRAD_ITS ---
PROCEDURE INFORMATION: Exam: XR Left Knee Exam date and time: 10/01/2022 6:49 PM Age: 72 years old Clinical indication: Other: Eval pathology TECHNIQUE: Imaging protocol: Radiologic exam of the left knee. Views: 3 views. COMPARISON: No relevant prior studies available. FINDINGS: Bones/joints: There is mild spurring of the patella and tibial spines compatible with early osteoarthritis. Osseous alignment is normal. No acute fracture or joint fluid. Soft tissues: Normal. IMPRESSION: Minimal findings of osteoarthritis Dictated and Authenticated by: Jerry Torres MD. Ordering:JOLENE Helms MD
== END 2022-10-01 18:48 ==
PROVIDERS: PCP Nurse Practitioner Family; Visit Provider Nurse Practitioner Family
DX: M25.562 Pain in left knee (principal)
CPT/HCPCS: 73562

== ENCOUNTER 2023-05-26 15:30 | Outpatient (REF) | payer MEDICARE, SELFPAY ==
[2023-05-26 18:54] LABS: Hemoglobin A1C 5.5 % (<5.7)
[2023-05-26 19:10] LABS: ALT 30 U/L (16-63); AST 12 U/L (15-37); Albumin 3.8 g/dL (3.4-5.0); Alkaline Phosphatase 92 U/L (46-116); Anion Gap 9.7 mmol/L (3-11); BUN 21 mg/dL (7-18); Bilirubin, Total 0.4 mg/dL (0.2-1.0); CO2 26.3 mmol/L (21.0-32.0); Calcium 9.4 mg/dL (8.5-10.1); Calculated LDL 67 mg/dL (<100); Chloride 107 mmol/L (98-107); Cholesterol 168 mg/dL (<200); Estimated GFR 78.98 (mL/min/1.73m2); Glucose 173 mg/dL (74-106); HDL Cholesterol 38 mg/dL (40-60); Potassium 3.8 mmol/L (3.5-5.1); Sodium 143 mmol/L (136-145); Total Protein 7.2 g/dL (6.4-8.2); Triglyceride 315 mg/dL (<150)
== END 2023-05-26 15:31 | disposition home or self-care (01) ==
LOC: NCHCN 15:30
PROVIDERS: PCP Nurse Practitioner Family; Visit Provider Nurse Practitioner Family
DX: E11.9 Type 2 diabetes mellitus without complications (principal); E78.5 Hyperlipidemia, unspecified
CPT/HCPCS: 80053; 80061; 83036

== ENCOUNTER 2024-05-24 13:45 | Outpatient (REF) | payer MEDICARE, SELFPAY ==
[2024-05-24 19:39] LABS: ALT 21 U/L (16-63); AST 8 U/L (15-37); Albumin 3.7 g/dL (3.4-5.0); Alkaline Phosphatase 90 U/L (46-116); Anion Gap 8.3 mmol/L (3-11); BUN 18 mg/dL (7-18); Bilirubin, Total 0.41 mg/dL (0.2-1.0); CO2 26.7 mmol/L (21.0-32.0); CREATININE 0.9 mg/dL (0.70-1.30); Calcium 9.4 mg/dL (8.5-10.1); Calculated LDL 45 mg/dL (<100); Chloride 106 mmol/L (98-107); Cholesterol 154 mg/dL (<200); Estimated GFR 89.07 (mL/min/1.73m2); Glucose 102 mg/dL (74-106); HDL Cholesterol 37 mg/dL (40-60); Potassium 4.2 mmol/L (3.5-5.1); Sodium 141 mmol/L (136-145); Total Protein 7.2 g/dL (6.4-8.2); Triglyceride 362 mg/dL (<150)
== END 2024-05-24 13:46 | disposition home or self-care (01) ==
LOC: NCHCN 13:45
PROVIDERS: PCP Nurse Practitioner Family; Visit Provider Nurse Practitioner Family
DX: E11.9 Type 2 diabetes mellitus without complications (principal)
CPT/HCPCS: 80053; 80061

== ENCOUNTER 2025-01-04 14:54 | Outpatient (REF) | payer MEDICARE, SELFPAY ==
[2025-01-04 16:00] LABS: Hemoglobin A1C 6.9 % (<5.7)
[2025-01-04 16:16] LABS: ALT 17 U/L (16-63); AST 17 U/L (15-37); Albumin 3.3 g/dL (3.4-5.0); Alkaline Phosphatase 45 U/L (46-116); Anion Gap 2.5 mmol/L (3-11); BUN 27 mg/dL (7-18); Bilirubin, Total 0.3 mg/dL (0.2-1.0); CO2 33.5 mmol/L (21.0-32.0); Calcium 9.0 mg/dL (8.5-10.1); Calculated LDL 61 mg/dL (<100); Chloride 106 mmol/L (98-107); Cholesterol 128 mg/dL (<200); Estimated GFR 78.00 (mL/min/1.73m2); Glucose 200 mg/dL (74-106); HDL Cholesterol 39 mg/dL (>or=40); Potassium 5.5 mmol/L (3.5-5.1); Sodium 142 mmol/L (136-145); Total Protein 7.4 g/dL (6.4-8.2); Triglyceride 141 mg/dL (<150)
== END 2025-01-04 14:55 | disposition home or self-care (01) ==
LOC: NCHCN 14:54
PROVIDERS: PCP Physician Assistant; Visit Provider Physician Assistant
DX: Z79.4 Long term (current) use of insulin (principal)
CPT/HCPCS: 80053; 80061; 83036